=== PATIENT | male | born 1975 | race Caucasian/White ===

== ENCOUNTER 2021-02-12 15:49 | Emergency (ER) | payer OTHER ==
--- NOTE | 2021-02-12 16:41 | EDM.PDOC ---
ED HPI GENERAL MEDICAL PROBLEM - General Chief Complaint: Skin Complaint Stated Complaint: REDNESS AND ITCHING ON CHEST Time Seen by Provider: 02/12/21 16:24 Source of Information: Reports: Patient, RN Notes Reviewed History Limitations: Reports: No Limitations - History of Present Illness INITIAL COMMENTS - FREE TEXT/NARRATIVE: Patient is a 45-year-old male who presents to the ER for evaluation of an allover skin rash. States that he was placed on trimethoprim sulfa antibiotics 1 week ago, for a right knee issue. States that he developed a rash today, that was concerning. This is all over his chest at this time. States it is somewhat itchy but he is not complaining of any respiratory difficulty. Was concerned that it could be infectious or otherwise. States he has felt a little bit chilled but no actual fevers, no cough or shortness of breath or any sort of nausea/vomiting/diarrhea. - Related Data Allergies Allergy/AdvReac Type Severity Reaction Status Date / Time No Known Allergies Allergy Verified 02/12/21 16:26 Home Meds: Home Meds Doxycycline [Vibramycin] 100 mg PO BID 7 Days #14 tab 02/12/21 [Rx] predniSONE 20 mg PO ASDIRECTED #10 tab 02/12/21 [Rx] Past Medical History - Past Health History Medical/Surgical History: Denies Medical/Surgical History - Infectious Disease History Infectious Disease History: Reports: Novel Coronavirus Social & Family History - Tobacco Use Tobacco Use Status *Q: Current Every Day Tobacco User Years of Tobacco use: 30 Packs/Tins Daily: 0.5 - Caffeine Use Caffeine Use: Reports: Energy Drinks - Recreational Drug Use Recreational Drug Use: No ED ROS GENERAL - Review of Systems Review Of Systems: Comprehensive ROS is negative, except as noted in HPI. ED EXAM, SKIN/RASH Exam: See Below Exam Limited By: No Limitations General Appearance: Alert, WD/WN, No Apparent Distress Respiratory/Chest: No Respiratory Distress, Lungs Clear, Normal Breath Sounds, No Accessory Muscle Use, Chest Non-Tender Cardiovascular: Normal Peripheral Pulses, Regular Rate, Rhythm, No Edema Extremities: Normal Inspection, Normal Capillary Refill Neurological: Alert, Oriented, Normal Cognition, No Motor/Sensory Deficits Psychiatric: Normal Affect, Normal Mood Skin: Warm, Dry, Intact, Normal Color, Rash (diffuse maculopapular rash to anterior chest with associated erythema) Course - Vital Signs Last Recorded V/S: Last Vital Signs Temp 98.4 F 02/12/21 16:24 Pulse 94 02/12/21 16:24 Resp 18 02/12/21 16:24 BP 122/72 02/12/21 16:24 Pulse Ox 100 02/12/21 16:24 - Re-Assessments/Exams Free Text/Narrative Re-Assessment/Exam: 02/12/21 16:43 Patient presents to the ER for skin rash, this does appear to be a sulfa allergy type rash. We will have him discontinue use of trimethoprim sulfa switch him to doxycycline and start him on oral prednisone due to having no associated respiratory concerns today. Patient verbalized understanding. Departure - Departure Time of Disposition: 16:39 Disposition: Home, Self-Care 01 Condition: Good Clinical Impression: Allergic reaction caused by a drug Qualifiers: Encounter type: initial encounter Qualified Code(s): T78.40XA - Allergy, unspecified, initial encounter - Discharge Information *PRESCRIPTION DRUG MONITORING PROGRAM REVIEWED*: No *COPY OF PRESCRIPTION DRUG MONITORING REPORT IN PATIENT SHAUNA: No Prescriptions: predniSONE 20 mg PO ASDIRECTED #10 tab Doxycycline [Vibramycin] 100 mg PO BID 7 Days #14 tab Instructions: Allergies, Adult, [id number] Referrals: PCP,None [Primary Care Provider] - Forms: ED Department Discharge Additional Instructions: You were evaluated in the ER today for your allover skin rash. This is thought likely to be due to the sulfa medications that you are taking in the antibiotic you were prescribed. You will need to discontinue this medication at this time. You have been given 2 different medications one will be ongoing antibiotic doxycycline 1 tablet 2 times a day for the next 7 days. The other medication will be oral prednisone for the allergic reaction you will take 1 tablet 2 times a day for the next 5 days. This medication was electronically sent to [facility] in the [facility]. You may use Benadryl, 25 mg tablets at home every 4 hours as needed for further allergic management. If this makes you too sedated during the day, you may use a medication like Claritin or Zyrtec and reserve the Benadryl for nighttime. Do not hesitate to return to the ER at any time if symptoms change or worsen. Sepsis Event Note (ED) - Focused Exam Vital Signs: Vital Signs Temp Pulse Resp BP Pulse Ox 02/12/21 16:24 98.4 F 94 18 122/72 100
== END 2021-02-12 16:50 | disposition home or self-care (01) ==
LOC: JD.ED 15:49
DX: R21 Rash and other nonspecific skin eruption (principal); T36.8X5A Adverse effect of other systemic antibiotics, initial encounter; Z72.0 Tobacco use; Z88.2 Allergy status to sulfonamides
CPT/HCPCS: 99282

== ENCOUNTER 2024-08-24 17:27 | Emergency (ER) | payer SELFPAY ==
[2024-08-24] MEDS: cefTRIAXone 1 GM, Lidocaine 1% 2.1 ML IM ONE (19:39)
[2024-08-24] MEDS: Diphtheria,Pertussis(Acell),Tetanus Vaccine 0.5 ML Syringe IM ONE (19:40)
== END 2024-08-24 19:45 | disposition home or self-care (01) ==
LOC: JD.ED 17:27
DX: S61.451A Open bite of right hand, initial encounter (principal); Z88.2 Allergy status to sulfonamides; Z79.899 Other long term (current) drug therapy; Z86.16 Personal history of COVID-19; Z23 Encounter for immunization; W54.0XXA Bitten by dog, initial encounter; Y93.89 Activity, other specified
CPT/HCPCS: 12001; 90471; 90715; 96372; 99283; J0696; J2003